=== PATIENT | male | born 1995 | race Caucasian/White ===

== ENCOUNTER 2023-12-07 14:10 | Emergency (ER) | payer MEDICAID ==
[~2023-12-07] VITALS: Ht 180.3 cm; Wt 90.7 kg
[2023-12-07 14:20] VITALS: BP_SYST 152; PULSE 64; RESP 22; TEMP 98.3; O2SAT 95
[2023-12-07] MEDS ORDERED: IBUP-1969 PO (15:15)
[2023-12-07] MEDS ORDERED: ACET-2634 PO (15:15)
[2023-12-07] MEDS: ACETAMINOPHEN 500 MG TABLET PO ONE (15:30)
[2023-12-07 16:00] VITALS: BP_SYST 152; PULSE 64; RESP 22; TEMP 98.3; O2SAT 95
== END 2023-12-07 16:00 | disposition home or self-care (01) ==
LOC: SED 14:10
DX: S63.693A Other sprain of left middle finger, initial encounter (principal); Z79.899 Other long term (current) drug therapy; W18.39XA Other fall on same level, initial encounter; Y93.89 Activity, other specified; Y92.89 Other specified places as the place of occurrence of the external cause; Y99.8 Other external cause status
CPT/HCPCS: 99283